=== PATIENT | male | born 1980 | race African-American/Black ===

== ENCOUNTER 2016-10-27 23:32 | Emergency (ER) | payer OTHER ==
[2016-10-27 23:10] LABS: BASOPHILS 0.5 %; BASOPHILS ABSOLUTE 0.07 10/3/uL (0.0-0.16); EOSINOPHILS 1.7 %; EOSINOPHILS ABSOLUTE 0.25 10/3/uL (0.0-0.53); ER CBC TAT 0 Hrs 08 Mins; HEMOGLOBIN 13.9 g/dL (13.6-17.8); IMMATURE GRANULOCYTES 0.3 %; IMMATURE GRANULOCYTES ABSOLUTE 0.04 10/3/uL (0.0-0.11); LYMPHOCYTES 27.6 %; LYMPHOCYTES ABSOLUTE 4.02 10/3/uL (0.67-4.30); MANUAL DIFF NO %; MEAN CORPUS HGB CONC 33.9 g/dL (32.0-36.0); MEAN CORPUSCULAR HEMOGLOB 31.7 pg (26.0-34.0); MEAN CORPUSCULAR VOLUME 93.4 fL (80-100); MEAN PLATELET VOLUME 9.1 fL (9.2-13.0); MONOCYTES 11.2 %; MONOCYTES ABSOLUTE 1.63 10/3/uL (0.21-1.20); NEUTROPHILS 58.7 %; NEUTROPHILS ABSOLUTE 8.53 10/3/uL (2.02-8.40); PLATELET COUNT 254 10/3/uL (150-400); RED CELL COUNT 4.39 10/6/uL (4.7-6.1); WHITE BLOOD CELLS 14.5 10/3/uL (4.5-10.5)
[2016-10-27 23:23] LABS: CALCIUM, SERUM 9.6 MG/DL (8.5-10.4); CHLORIDE, SERUM 103 MMOL/L (96-112); GFR AFRICAN AMERICAN 47 ML/MIN (>=60); GFR NON AFRICAN AMERICAN 40 ML/MIN (>=60); GLUCOSE, SERUM 109 MG/DL (60-99); POTASSIUM, SERUM 3.6 MMOL/L (3.5-5.3); SODIUM, SERUM 139 MMOL/L (135-148)
[2016-10-27 23:24] LABS: BUN (BLOOD UREA NITROGEN) 17 MG/DL (6-23); CO2 (CARBON DIOXIDE) 32 MMOL/L (24-34); CREATININE 2.07 MG/DL (0.70-1.30)
[2016-10-27 23:27] LABS: LACTATE 1.5 MMOL/L (0.3-2.4)
[~2016-10-27 23:32] MED LIST: ASABAYER PO; AUG875 PO; CIP5 PO; DIL2TAB PO; DURICEF PO; KDUR20 PO; MS CONTIN PO; MSCONT15 PO; MSCONTIN PO; NEUR100 PO; PCET PO; PERCOCET1 TA4 PO; ROXICODONE15 MG PO
[2016-10-28 00:13] LABS: PROCALCITONIN <0.05 ng/mL (<0.5)
[2017-02-08] MEDS ORDERED: CIP5 PO (17:33)
[2017-02-08] MEDS ORDERED: PERCOCET 10/3251 TAB PO (17:33)
[2017-02-08] MEDS ORDERED: DURICEF PO (17:35)
== END 2016-10-28 02:08 | disposition home or self-care (01) ==
LOC: ER 23:32
PROVIDERS: Emergency Medicine
DX: M79.674 Pain in right toe(s) (principal); N28.9 Disorder of kidney and ureter, unspecified; K21.9 Gastro-esophageal reflux disease without esophagitis; F17.200 Nicotine dependence, unspecified, uncomplicated; F90.9 Attention-deficit hyperactivity disorder, unspecified type; Z79.899 Other long term (current) drug therapy
CPT/HCPCS: 73660-RT; 80048; 83605; 84145; 85025; 96372; 96374; 99284; J0690; J1885